=== PATIENT | male | born 1990 | race Caucasian/White ===

== ENCOUNTER 2021-10-06 16:26 | Emergency (ER) | payer SELFPAY ==
[2021-10-06 18:10] LABS: BASOPHIL 0.4 % (0-2); EOSINOPHIL 1.2 % (0-5); HCT 47.2 % (42.0-52.0); HGB 16.5 g/dl (13.2-18.0); LYMPHOCYTE 13.9 % (15-48); MCH 29.5 pg (25.0-31.0); MCV 84.4 fL (78.0-100.0); MONOCYTE 10.9 % (0-12); MPV 10.6 fL (6.0-9.5); NEUTROPHIL 73.2 % (41-80); NRBC 0; PLT 272 K/uL (150-400); RBC 5.59 M/uL (4.70-6.00); RDW 11.8 % (11.5-14.0); WBC 12.3 K/uL (4.0-10.5)
[2021-10-06 18:21] LABS: CREATININE 0.92 mg/dL (0.67-1.17); POTASSIUM 3.2 mmol/L (3.5-5.1)
[2021-10-06] MEDS ORDERED: PREDNISONE 20MG20 MG PO (20:34)
[2021-10-06] MEDS ORDERED: ATARAX25 MG PO (20:34)
[2021-10-06 20:57] LABS: INR 1.04 (0.9-1.2); PTT 27.2 SECONDS (24.4-34.7)
== END 2021-10-06 20:42 | disposition home or self-care (01) ==
LOC: FER 16:26
PROVIDERS: Nurse Practitioner Family
DX: R07.89 Other chest pain (principal); R20.2 Paresthesia of skin; F17.290 Nicotine dependence, other tobacco product, uncomplicated
CPT/HCPCS: 36415; 71045; 80048; 84484; 85025; 85379; 85610; 85730; 93005; J7030